=== PATIENT | female | born 1940 | race Caucasian/White ===

== ENCOUNTER 2024-10-07 13:32 | Emergency (ER) | payer OTHER, MEDICARE ==
[2024-10-07 13:59] VITALS: PULSE 77; BMI 24.7
[2024-10-07 18:37] VITALS: BP 112/63; RESP 17; TEMP 98.5
== END 2024-10-07 18:50 ==
LOC: JER 13:32
DX: M79.18 Myalgia, other site (principal); W05.0XXA Fall from non-moving wheelchair, initial encounter
CPT/HCPCS: 72192-TC; 99284-25